=== PATIENT | male | born 1970 | race Caucasian/White ===

== ENCOUNTER 2018-03-09 21:59 | Emergency (ER) | payer MEDICARE, BC ==
[~2018-03-09] VITALS: Ht 180.3 cm; Wt 117.9 kg
[~2018-03-09 21:59] MED LIST: ? BP MED; B-121000 MC2 PO; CEPH500 PO; CHOL10002; Daily Multiple1 EACH PO; FERR325 PO; FLUR100; HYDACE5 PO; IBUP800; LISHYD2012 PO; METO25ER PO; OMEPRAZOLE MAGN20 MG PO; OXYACE5T PO; POTCHL10ER; POTCHL10ER PO; Percocet 5-3251 EACH PO; SPIR50 PO; SULTRIDS PO; TAMS.4ER PO; Testostero100 MG/1 M IM
[2018-03-09] MEDS ORDERED: LISI20 PO (22:07)
[2018-03-09 22:12] LABS: BASOPHILS ABSOLUTE AUTO 0.02 K/mm3 (0.00-0.23); BASOPHILS PERCENT AUTO 0 % (0-2); EOSINOPHILS ABSOLUTE AUTO 0.13 K/mm3 (0.00-0.68); EOSINOPHILS PERCENT AUTO 2 % (0-6); Hematocrit 42.1 % (37.0-53.0); Hemoglobin 14.1 g/dL (13.5-17.5); IMMATURE GRAN ABSOLUTE AUTO 0.02 K/mm3 (0.00-0.10); IMMATURE GRAN PERCENT AUTO 0 % (0-1); LYMPHOCYTES ABSOLUTE AUTO 1.83 K/mm3 (0.84-5.20); LYMPHOCYTES PERCENT AUTO 22 % (21-46); MONOCYTES ABSOLUTE AUTO 0.45 K/mm3 (0.16-1.47); MONOCYTES PERCENT AUTO 5 % (4-13); Mean Corpuscular HGB Conc 33.5 g/dL (31.5-36.5); Mean Corpuscular Volume 87 fL (80-100); Mean Platelet Volume 9.3 fL (9.1-12.4); NEUTROPHILS ABSOLUTE AUTO 6.08 K/mm3 (1.96-9.15); NEUTROPHILS PERCENT AUTO 71 % (41-73); Platelet Count 280 K/mm3 (150-400); RDW Coefficient Variation 13.3 % (11.7-14.2); RDW Standard Deviation 41.6 fL (35.1-46.3); Red Blood Cell Count 4.86 M/mm3 (4.30-5.90); White Blood Cell Count 8.53 K/mm3 (4.00-11.30)
[2018-03-09 22:25] LABS: International Normalized Ratio 0.99; Prothrombin Time Results 10.2 Sec (9.7-11.5)
[2018-03-09 22:33] LABS: Alanine Aminotransfer (ALT/SGP 24 U/L (12-78); Albumin, Blood 4.2 g/dL (3.4-5.0); Albumin/Globulin Ratio 1.2 (0.8-1.8); Alk Phos 90 U/L (50-136); Anion Gap 9 mmol/L (6-16); Aspartate Aminotrans (AST/SGOT 19 U/L (12-37); Bilirubin, Total 0.4 mg/dL (0.1-1.0); Blood Urea Nitrogen 14 mg/dL (8-24); Bun/Creatinine Ratio 18.5 (12.0-20.0); CO2, Blood 25 mmol/L (21-32); Calcium, Blood 8.5 mg/dL (8.5-10.1); Chloride, Blood 108 mmol/L (98-108); Creatinine, Blood 0.76 mg/dL (0.60-1.20); Globulin, Blood 3.5 g/dL (2.2-4.0); Glomerular Filtration Rate >60 (60-); Glucose, Blood 107 mg/dL (70-99); Potassium, Blood 3.9 mmol/L (3.5-5.5); Sodium, Blood 142 mmol/L (136-145); Total Protein, Blood 7.7 g/dL (6.4-8.2); Troponin I <0.015 ng/mL (0.000-0.040)
[2018-03-09] MEDS ORDERED: DIAZ5 PO (23:14)
[2018-03-10] MEDS ORDERED: Percocet 5-3251 EACH PO (01:41)
[2018-03-10] MEDS ORDERED: HYOS.125 SL (01:41)
== END 2018-03-10 02:10 | disposition home or self-care (01) ==
LOC: ER 21:59
PROVIDERS: Emergency Medicine
DX: K80.40 Calculus of bile duct with cholecystitis, unspecified, without obstruction (principal); Z79.899 Other long term (current) drug therapy; I10 Essential (primary) hypertension
CPT/HCPCS: 71045; 76705; 80053; 81000; 83690; 84484; 85025; 85610; 93005; 93010; 96361; 96374; 96375; 96376; 99284-25; J1885; J2405; J3010; J7030

== ENCOUNTER 2018-03-29 08:28 | Day surgery (SDC) | payer BC, SELFPAY ==
[~2018-03-29] VITALS: Ht 177.8 cm; Wt 111.1 kg
[~2018-03-29 08:28] MED LIST changes: +DIAZ5 PO; +HYOS.125 SL; +LISI20 PO; +Lisinopril2.5 MG PO
== END 2018-03-29 22:44 | disposition home or self-care (01) ==
LOC: ORSCMMR 08:28 → ORD 10:15 → ORSCMMR 10:15
PROVIDERS: Surgery
PROC: BF031ZZ Plain Radiography of Gallbladder and Bile Ducts using Low Osmolar Contrast (ICD-10-PCS; principal; 2018-03-29 10:15)
PROC: 0FT44ZZ Resection of Gallbladder, Percutaneous Endoscopic Approach (ICD-10-PCS; principal; 2018-03-29 10:15)
DX: K80.00 Calculus of gallbladder with acute cholecystitis without obstruction (principal); I10 Essential (primary) hypertension; F17.220 Nicotine dependence, chewing tobacco, uncomplicated; Z79.899 Other long term (current) drug therapy
CPT/HCPCS: 74300; 88304; C1729; J0690; J1885; J2250; J2710; J3010; J7030; J7120

== ENCOUNTER 2020-09-09 09:26 | Day surgery (SDC) | payer OTHER ==
[~2020-09-09] VITALS: Ht 180.3 cm; Wt 113.1 kg
[~2020-09-09 09:26] MED LIST changes: +DEPO-TESTO200 MG/1 M; +OMEP20ER
== END 2020-09-09 11:55 | disposition home or self-care (01) ==
LOC: ORSCSDS 09:26
PROVIDERS: Internal Medicine Gastroenterology
PROC: 0DJD8ZZ Inspection of Lower Intestinal Tract, Via Natural or Artificial Opening Endoscopic (ICD-10-PCS; principal; 2020-09-09 10:45)
PROC: 0DB58ZX Excision of Esophagus, Via Natural or Artificial Opening Endoscopic, Diagnostic (ICD-10-PCS; principal; 2020-09-09 10:45)
PROC: 0DB78ZX Excision of Stomach, Pylorus, Via Natural or Artificial Opening Endoscopic, Diagnostic (ICD-10-PCS; principal; 2020-09-09 10:45)
DX: Z12.11 Encounter for screening for malignant neoplasm of colon (principal); K21.9 Gastro-esophageal reflux disease without esophagitis; K29.70 Gastritis, unspecified, without bleeding; K64.8 Other hemorrhoids; F17.220 Nicotine dependence, chewing tobacco, uncomplicated; Z79.899 Other long term (current) drug therapy
CPT/HCPCS: 88305; 88342; J2704; J7120

== ENCOUNTER → 2023-07-05 | Outpatient (CLI) | payer BC | LOC: LAB SHORT 13:27 → LAB 13:27 | DX: L03.211 Cellulitis of face (principal); L08.9 Local infection of the skin and subcutaneous tissue, unspecified | CPT/HCPCS: 87070; 87077; 87147; 87186 ==

== ENCOUNTER → 2024-02-18 | Outpatient (CLI) | payer BC | END | disposition home or self-care (01) | LOC: LAB SHORT 09:15 → LAB 09:15 | DX: L02.413 Cutaneous abscess of right upper limb (principal) | CPT/HCPCS: 87070; 87077; 87147; 87186; 87205 ==

== ENCOUNTER 2024-02-19 12:40 | Emergency (ER) | payer BC ==
[~2024-02-19] VITALS: Ht 180.3 cm; Wt 118.8 kg
[2024-02-19 12:56] VITALS: BP 132/96
[2024-02-19] MEDS ORDERED: CefTRIAXone 1000 MG Vial IM ONE (13:45)
[2024-02-19] MEDS ORDERED: CEPH500 PO (13:52)
== END 2024-02-19 14:30 | disposition home or self-care (01) ==
LOC: ER 12:40
DX: L02.413 Cutaneous abscess of right upper limb (principal); I10 Essential (primary) hypertension; Z79.899 Other long term (current) drug therapy
CPT/HCPCS: 10060; 87070; 87075; 87077; 87147; 87186; 87205; 96372-59; 99283-25; J0696